=== PATIENT | male | born 1995 | race Caucasian/White ===

== ENCOUNTER → 2022-02-14 | Outpatient (CLI) | payer BC ==
--- NOTE | 2022-02-15 13:12 | NM ---
EXAMINATION TYPE: NM thyroid uptake only single DATE OF EXAM: 02/15/2022 COMPARISON: NONE HISTORY: Thyroid cancer. Symptoms of weight gain and increased appetite along with irritability and i nsomnia along with heat and cold intolerance per patient. Following administration of 98.4 uCi I-123 capsule. FINDINGS: The 24-hour iodine uptake is calculated at 9% (normal range 15-35%). IMPRESSION: Diminished thyroid uptake suggests hypothyroidism. Correlate clinically.
== END | disposition home or self-care (01) ==
LOC: RADNMMAIN 09:02
PROVIDERS: ATTEND Internal Medicine
DX: C73 Malignant neoplasm of thyroid gland (principal)
CPT/HCPCS: 78012; A9516

== ENCOUNTER → 2022-02-19 | Outpatient (CLI) | payer BC ==
--- NOTE | 2022-02-22 08:51 | NM ---
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 Status post resection. Referred for I-131 remnant ablation. TECHNIQUE: The patient is on a low iodine diet and is on thyroid hormone withdrawal. Dose was prescribed (written directive) by an Authorized User in conjunction with treatment request a nd consultation with Dr. Mckee. Risks, benefits, and potential complications of radioactive I-131 therapy were discussed in detail wi th the patient by myself and the supervisor properties. Verbal and written informed consent wer e obtained. Written instructions were given for radiation safety precautions to be observed for 5 day s outpatient. The patient specific exposure calculations were done by RSO to ensure estimated max dose to any indiv idual exposed to the patient was less than 5 mSv. The patient was specifically advised to avoid close contact with children, women, and other members of public. Dose was verified in dose caliber and patient was given oral I-131 pill under the supervision of the supervisor properties. There were no immediate complications. IMPRESSION: Outpatient 101.7 mCi I-131 oral therapy capsule for thyroid cancer, remnant ablation. Patient will r eturn for his posttreatment whole body scan.
== END | disposition home or self-care (01) ==
LOC: RADNMMAIN 13:01
PROVIDERS: ATTEND Internal Medicine
DX: C73 Malignant neoplasm of thyroid gland (principal)
CPT/HCPCS: 79005; A9517

== ENCOUNTER → 2022-02-21 | Outpatient (CLI) | payer BC ==
--- NOTE | 2022-02-26 16:48 | NM ---
EXAMINATION TYPE: NM I-131 Whole Body Imaging DATE OF EXAM: 02/22/2022 Comparison: None Clinical History: 26-year-old male C73 THYROID CA. Large conventional thyroid cancer with positive ly mph nodes. Status post resection. Follow-up after remnant ablation. TECHNIQUE: Following the oral administration of 101.7 mCi I-131 on 02/19/2022, whole body scan was pe rformed 2 and 3 days after radiotracer administration. FINDINGS: There is physiologic uptake within the salivary glands, nasopharynx, stomach, colon, and bladder. There is very intense , elongated area of tracer activity extensively along the midline of the neck w ith an additional focal intense area along the left paramedian lower neck. Otherwise, no abnormal tracer activity is seen. IMPRESSION: 1. Very intense, elongated area of tracer activity, extensively along the midline of the neck likely prominent remnant thyroid tissue. 2. Additional focal uptake lower left paramedian neck could represent a solitary metastatic lymph nod e or a discontinuous area of residual thyroid parenchyma/disease. 3. Otherwise, no evidence for metastatic disease elsewhere in the body.
== END | disposition home or self-care (01) ==
LOC: RADNMMAIN 12:51
PROVIDERS: ATTEND Internal Medicine
DX: C73 Malignant neoplasm of thyroid gland (principal)
CPT/HCPCS: 78018

== ENCOUNTER 2022-03-08 10:49 | Emergency (ER) | payer BC, OTHER ==
[2022-03-08 12:15] VITALS: BP 131/85; PULSE 102; RESP 20; TEMP 98.9
[2022-03-08] MEDS ORDERED: DEXAMETHASONE SOD PHOSPHATE 10 MG/ML 1 ML VIAL IVP STA (12:57)
[2022-03-08] MEDS ORDERED: SODIUM CHLORIDE 0.9% 1,000 ML IV ONE (13:16)
--- NOTE | 2022-03-08 13:31 | ED ---
ENT HPI - General Chief complaint: ENT Stated complaint: VALENTIN, sore thoat, swollen mouth Time Seen by Provider: 03/08/22 12:31 Source: patient, RN notes reviewed Mode of arrival: ambulatory Limitations: no limitations - History of Present Illness Initial comments: 26-year-old male presents emergency Department with chief complaint of sore throat, swallowing. Patient states that in December he had a thyroidectomy and February 17 added reactivating treatment. Patient states it lasted days developed sore throat, exudates, swelling. Patient states that his place initially on antibiotics did recently see his software engineering associate manager who changes antibiotics placement steroids. States that has not responded. Patient had strep, mono with no acute findings. Patient states that he feels severe pain, swelling to swallowing. - Related Data Home Medications Medication Instructions Recorded Confirmed Amoxicillin/Potassium Clav 1 tab PO BID 03/08/22 03/08/22 [Amox-Clav 875-125 mg Tablet] Levothyroxine Sodium [Synthroid] 175 mcg PO DAILY 03/08/22 03/08/22 methylPREDNISolone Dose Pack See Taper PO DIRECTED 03/08/22 03/08/22 [Medrol Dose Pack] Allergies Allergy/AdvReac Type Severity Reaction Status Date / Time No Known Allergies Allergy Verified 03/08/22 13:30 Review of Systems ROS Statement: Those systems with pertinent positive or pertinent negative responses have been documented in the HPI. ROS Other: All systems not noted in ROS Statement are negative. Past Medical History Additional Past Medical History / Comment(s): THYROID CANCER History of Any Multi-Drug Resistant Organisms: None Reported Additional Past Surgical History / Comment(s): THYROIDECTOMY Past Psychological History: No Psychological Hx Reported Smoking Status: Former smoker Past Alcohol Use History: None Reported Past Drug Use History: None Reported General Exam Limitations: no limitations General appearance: alert, in no apparent distress Head exam: Present: atraumatic, normocephalic, normal inspection Eye exam: Present: normal appearance, PERRL, EOMI. Absent: scleral icterus, conjunctival injection, periorbital swelling ENT exam: Present: mucous membranes moist, TM's normal bilaterally. Absent: normal oropharynx (Erythema and posterior exudates with moderate swelling bilaterally) Neck exam: Present: normal inspection, full ROM. Absent: tenderness, mening ismus, lymphadenopathy Respiratory exam: Present: normal lung sounds bilaterally. Absent: respiratory distress, wheezes, rales, rhonchi, stridor Cardiovascular Exam: Present: regular rate, normal rhythm, normal heart sounds. Absent: systolic murmur, diastolic murmur, rubs, gallop, clicks Course Vital Signs 03/08/22 12:11 Temperature 98.9 F Pulse Rate 102 H Respiratory 20 Rate Blood Pressure 131/85 O2 Sat by Pulse 98 Oximetry Medical Decision Making - Medical Decision Making 26-year-old male presents emergency Department with chief complaint of sore throat patient has multiple states swelling. Labs reveal evidence of reactive lymphocytes, positive heterophile consistent with mono - Lab Data Result diagrams: 03/08/22 13:15 03/08/22 13:15 Lab Results 03/08/22 03/08/22 03/08/22 Range/Units 13:15 13:15 13:15 WBC 11.5 H (3.8-10.6) k/uL RBC 4.66 (4.30-5.90) m/uL Hgb 12.8 L (13.0-17.5) gm/dL Hct 38.2 L (39.0-53.0) % MCV 81.9 (80.0-100.0) fL MCH 27.4 (25.0-35.0) pg MCHC 33.5 (31.0-37.0) g/dL RDW 14.1 (11.5-15.5) % Plt Count 235 (150-450) k/uL MPV 6.9 Neutrophils % Not Reportable Neutrophils % (Manual) 40 % Lymphocytes % Not Reportable Lymphocytes % (Manual) 53 % Monocytes % Not Reportable Monocytes % (Manual) 7 % Eosinophils % Not Reportable Basophils % Not Reportable Neutrophils # Not Reportable Neutrophils # (Manual) 4.60 (1.3-7.7) k/uL Lymphocytes # Not Reportable Lymphocytes # (Manual) 6.10 H (1.0-4.8) k/uL Monocytes # Not Reportable Monocytes # (Manual) 0.81 (0-1.0) k/uL Eosinophils # Not Reportable Basophils # Not Reportable Nucleated RBCs 0 (0-0) /100 WBC Manual Slide Review Performed Reactive Lymphocytes Present RBC Morphology Normal Sodium 134 L (137-145) mmol/L Potassium 5.0 (3.5-5.1) mmol/L Chloride 98 (98-107) mmol/L Carbon Dioxide 24 (22-30) mmol/L Anion Gap 12 mmol/L BUN 13 (9-20) mg/dL Creatinine 1.16 (0.66-1.25) mg/dL Est GFR (CKD-EPI)AfAm >90 (>60 ml/min/1.73 sqM) Est GFR (CKD-EPI)NonAf 88 (>60 ml/min/1.73 sqM) Glucose 110 H (74-99) mg/dL Calcium 9.2 (8.4-10.2) mg/dL Total Bilirubin 0.7 (0.2-1.3) mg/dL AST 83 H (17-59) U/L ALT 127 H (4-49) U/L Alkaline Phosphatase 200 H (38-126) U/L Total Protein 8.0 (6.3-8.2) g/dL Albumin 4.8 (3.5-5.0) g/dL Heterophile Antibody Positive (Negative) Group A Strep Rapid (Negative) 03/08/22 Range/Units 13:15 WBC (3.8-10.6) k/uL RBC (4.30-5.90) m/uL Hgb (13.0-17.5) gm/dL Hct (39.0-53.0) % MCV (80.0-100.0) fL MCH (25.0-35.0) pg MCHC (31.0-37.0) g/dL RDW (11.5-15.5) % Plt Count (150-450) k/uL MPV Neutrophils % Neutrophils % (Manual) % Lymphocytes % Lymphocytes % (Manual) % Monocytes % Monocytes % (Manual) % Eosinophils % Basophils % Neutrophils # Neutrophils # (Manual) (1.3-7.7) k/uL Lymphocytes # Lymphocytes # (Manual) (1.0-4.8) k/uL Monocytes # Monocytes # (Manual) (0-1.0) k/uL Eosinophils # Basophils # Nucleated RBCs (0-0) /100 WBC Manual Slide Review Reactive Lymphocytes RBC Morphology Sodium (137-145) mmol/L Potassium (3.5-5.1) mmol/L Chloride (98-107) mmol/L Carbon Dioxide (22-30) mmol/L Anion Gap mmol/L BUN (9-20) mg/dL Creatinine (0.66-1.25) mg/dL Est GFR (CKD-EPI)AfAm (>60 ml/min/1.73 sqM) Est GFR (CKD-EPI)NonAf (>60 ml/min/1.73 sqM) Glucose (74-99) mg/dL Calcium (8.4-10.2) mg/dL Total Bilirubin (0.2-1.3) mg/dL AST (17-59) U/L ALT (4-49) U/L Alkaline Phosphatase (38-126) U/L Total Protein (6.3-8.2) g/dL Albumin (3.5-5.0) g/dL Heterophile Antibody (Negative) Group A Strep Rapid Negative (Negative) Disposition Clinical Impression: Mononucleosis Disposition: HOME SELF-CARE Condition: Stable Instructions (If sedation given, give patient instructions): Mononucleosis (ED) Additional Instructions: Please return to the Emergency Department if symptoms worsen or any other concerns. Is patient prescribed a controlled substance at d/c from ED?: No Referrals: Maria L Smith DO [Primary Care Provider] - 1-2 days Time of Disposition: 14:45
[2022-03-08 13:32] LABS: HCT 38.2 % (39.0-53.0); HGB 12.8 gm/dL (13.0-17.5); MCH 27.4 pg (25.0-35.0); MCHC 33.5 g/dL (31.0-37.0); MCV 81.9 fL (80.0-100.0); Mean Platelet Volume 6.9; Platelet Count 235 k/uL (150-450); RBC 4.66 m/uL (4.30-5.90); RDW 14.1 % (11.5-15.5); WBC 11.5 k/uL (3.8-10.6)
[2022-03-08 13:36] LABS: ALT 127 U/L (4-49); AST 83 U/L (17-59); African American GFR (CKD) >90 (>60 ml/min/1.73 sqM); Albumin 4.8 g/dL (3.5-5.0); Alkaline Phosphatase 200 U/L (38-126); Anion Gap 12 mmol/L; Blood Urea Nitrogen 13 mg/dL (9-20); Calcium 9.2 mg/dL (8.4-10.2); Carbon Dioxide 24 mmol/L (22-30); Chloride 98 mmol/L (98-107); Glucose 110 mg/dL (74-99); Non-African American GFR(CKD) 88 (>60 ml/min/1.73 sqM); Sodium 134 mmol/L (137-145); Total Bilirubin 0.7 mg/dL (0.2-1.3)
[2022-03-08 14:11] LABS: Monocytes # (M) 0.81 k/uL (0-1.0); Neutrophils % (M) 40 %; Nucleated Red Blood Cells 0 /100 WBC (0-0); Total Cells Counted 100
[2022-03-08 14:12] LABS: RBC Morphology Normal; Reactive Lymphocytes Present
--- NOTE | 2022-03-08 14:34 | CT ---
EXAMINATION TYPE: CT soft tissue neck wo con DATE OF EXAM: 03/08/2022 HISTORY: Swelling, pain.History of recent thyroid surgery and radioactive ablation for thyroid cancer COMPARISON: Nuclear medicine whole body study February 21, 2022 CT DLP: 490.4 mGycm. Automated Exposure Control for Dose Reduction was Utilized. TECHNIQUE: CT scan of the neck is performed without contrast. FINDINGS: Lack of IV contrast was noted to lower sensitivity for mucosal evaluation and abnormal neck adenopathy. Airway: Symmetric prominence of the palatine tonsils that base of tongue axial image 34 patient upper epiglot tis and vallecula appears within normal limits. Some remnant low dense thyroid near axial image 65 is felt present correlating with recent nuclear medicine study. Airway is patent. Parotid/submandibular glands: No gross abnormality seen. Osseous Structures: No significant abnormality. Other: Mild ill-defined fluid and fat stranding anterior to the thyroid gland correlates with patient 's history. Some blurring of fat planes at this level from the remnant thyroid and adjacent strap mus cles is noted. Prominent but subcentimeter lymph nodes at this level are identified. No definitive we ll-defined fluid collection or abscess seen. IMPRESSION: Suboptimal study without IV contrast. Findings at the level of thyroid bed favor product of recent surgery and ablation. Development of infection at this level is not entirely excluded . No definitive well-formed fluid collection or abscess at this level. Airway remains patent.
== END 2022-03-08 15:01 | disposition home or self-care (01) ==
LOC: EC 10:49
DX: B27.90 Infectious mononucleosis, unspecified without complication (principal); E89.0 Postprocedural hypothyroidism; Z79.890 Hormone replacement therapy; Z87.891 Personal history of nicotine dependence
CPT/HCPCS: 99284; 36415; 80053; 85025; 86308; 87081; 87430; 70490; 96365; 96375; 96361; J1100; J0696

== ENCOUNTER → 2024-05-13 | Outpatient (CLI) | payer OTHER ==
--- NOTE | 2024-05-15 20:59 | CT ---
EXAMINATION TYPE: CT cervical spine wo con DATE OF EXAM: 05/13/2024 3:33 PM COMPARISON: None. CLINICAL INDICATION: Male, 28 years old with history of S12.690D OTH DISP FX OF 7TH CERVCAL VERT; Fol low up from recent cervical fx in January 2024 TECHNIQUE: Axial CT images from the skull base to the inferior aspect of T2 we obtained without intra venous contrast. Coronal and sagittal reformatted images were also reviewed. Contrast used: mL of , (if blank None) Oral contrast used: (if blank None) CT DLP: 1314.1 mGycm, Automated exposure control for dose reduction was used. FINDINGS: Fracture: None. Osseous structures: Fixation hardware at C7-T1 anteriorly and posteriorly at C5 C6-T2. Hardware appea rs intact. Vertebral alignment: Alignment within normal limits. Spinal canal/Neural Foramina: No evidence of significant spinal canal narrowing. No evidence for sign ificant neural foraminal stenosis. Neck soft tissues: Prevertebral soft tissues are within normal limits. Other: The airway is patent. Right right-sided lung airspace patchy airspace opacities posteriorly. IMPRESSION: 1. No evidence of cervical spine fracture. 2. Postsurgical changes of the spine with hardware intact. 3. Mild degeneration changes of the spine. 4. Right lung airspace opacities consider complete evaluation of the lungs, correlate for infectious process. [facility], , 05/15/2024 8:57 PM
== END | disposition home or self-care (01) ==
LOC: RADCTMAIN 14:53
PROVIDERS: ATTEND Neurological Surgery
DX: S12.690D Other displaced fracture of seventh cervical vertebra, subsequent encounter for fracture with routine healing (principal); M47.812 Spondylosis without myelopathy or radiculopathy, cervical region; R91.8 Other nonspecific abnormal finding of lung field; Z98.890 Other specified postprocedural states
CPT/HCPCS: 72125